=== PATIENT | male | born 1985 | race Two or more races ===

== ENCOUNTER 2023-12-31 04:11 | Emergency (ER) | payer OTHER ==
[~2023-12-31] VITALS: Ht 175.3 cm; Wt 75.0 kg
[2023-12-31 04:20] VITALS: BP 104/68; PULSE 65; RESP 18; TEMP 98.2
[2023-12-31] MEDS: IBUPROFEN 600 MG TABLET PO ONE (04:29)
[2023-12-31] MEDS: AMOX TR/POT CLAV 875 MG/125 MG TABLET PO ONE (04:29)
[2023-12-31] MEDS: PERTUSS(ACELL),DIPH,TET/PF 0.5 ML SYRINGE [ADULT] IM. ONE (04:30)
[2023-12-31] MEDS ORDERED: AMOX-457 PO (04:53)
[2023-12-31] MEDS ORDERED: IBUP-1492 PO (04:53)
== END 2023-12-31 05:49 | disposition home or self-care (01) ==
LOC: EMS 04:14
DX: S61.213A Laceration without foreign body of left middle finger without damage to nail, initial encounter (principal); W54.0XXA Bitten by dog, initial encounter; Y93.89 Activity, other specified; Y92.89 Other specified places as the place of occurrence of the external cause; Y99.8 Other external cause status
CPT/HCPCS: 90471; 90715; 99283

== ENCOUNTER 2024-02-27 16:05 | Emergency (ER) | payer OTHER ==
[~2024-02-27] VITALS: Ht 175.3 cm; Wt 69.1 kg
[~2024-02-27 16:05] MED LIST: AMOX-457 PO; IBUP-1492 PO
[2024-02-27 16:06] VITALS: BP 122/65; PULSE 76; RESP 18; TEMP 98
[2024-02-27] MEDS: LIDOCAINE 1%/EPI 1:200,000/PF 10 ML VIAL IM ONE (16:29)
[2024-02-27] MEDS: AMOX TR/POT CLAV 875 MG/125 MG TABLET PO ONE (17:13)
[2024-02-27] MEDS ORDERED: AMOX-457 PO (17:20)
== END 2024-02-27 17:27 | disposition home or self-care (01) ==
LOC: EMS 16:05
DX: S51.812A Laceration without foreign body of left forearm, initial encounter (principal); F12.90 Cannabis use, unspecified, uncomplicated; W54.0XXA Bitten by dog, initial encounter; Y93.89 Activity, other specified; Y92.89 Other specified places as the place of occurrence of the external cause; Y99.8 Other external cause status
CPT/HCPCS: 99283; 12002; J3490